=== PATIENT | female | born 1955 | race Caucasian/White ===

== ENCOUNTER 2016-12-26 15:18 | Emergency (ER) | payer MEDICAID ==
[~2016-12-26] VITALS: Ht 152.4 cm; Wt 109.7 kg
[2016-12-26] MEDS ORDERED: SODIUM CHLORIDE 0.9% 1,000ML IVBOLUS ONE (16:00)
[2016-12-26] MEDS ORDERED: SODIUM CHLORIDE FLUSH 10ML SYR IVF ONE (16:00)
[2016-12-26] MEDS ORDERED: ONDANSETRON 2MG/ML, 2ML IVPush ONE (16:00)
[2016-12-26] MEDS ORDERED: ONDANSETRON 2MG/ML, 2ML ONE (16:35)
[2016-12-26 16:41] LABS: BLOOD UREA NITROGEN 25 mg/dL (7-18)
[2016-12-26 16:46] LABS: ASPARTATE AMINO TRANSFERASE 16 U/L (15-37)
[2016-12-26 16:52] LABS: IS PT STATUS REG ER OR PRE ER? YES
[2016-12-26 16:55] VITALS: BP 170/93
[2016-12-26] MEDS ORDERED: HYDROmorphone 2 MG/ML, 1ML IVPush ONE (17:00)
[2016-12-26] MEDS ORDERED: HYDROmorphone 1 MG/ML, 1ML ONE (17:07)
== END 2016-12-26 18:06 | disposition home or self-care (01) ==
LOC: ED 18:00
DX: R51 Headache (principal); R42 Dizziness and giddiness; G89.29 Other chronic pain; I10 Essential (primary) hypertension; F43.10 Post-traumatic stress disorder, unspecified; M79.7 Fibromyalgia
CPT/HCPCS: 36415; 70450; 71010; 80053; 84484; 85025; 85610; 93005; 96361; 96374; 96375; 99285; J1170; J2405; J7030

== ENCOUNTER 2017-01-23 14:00 | Emergency (ER) | payer MEDICAID ==
[~2017-01-23] VITALS: Ht 152.4 cm; Wt 109.1 kg
[2017-01-23] MEDS ORDERED: KETOROLAC 30 MG/1 ML IVPush ONE (15:00)
[2017-01-23] MEDS ORDERED: SODIUM CHLORIDE 0.9% 1,000ML IVBOLUS ONE (15:00)
[2017-01-23] MEDS ORDERED: SODIUM CHLORIDE FLUSH 10ML SYR IVF ONE (15:00)
[2017-01-23] MEDS ORDERED: DIAZEPAM 5 MG TABLET PO ONE (15:00)
[2017-01-23] MEDS ORDERED: DIAZEPAM 5 MG TABLET ONE (15:06)
[2017-01-23] MEDS ORDERED: KETOROLAC 30 MG/1 ML ONE (15:06)
[2017-01-23 15:16] LABS: HEMATOCRIT 42.7 % (34.6-47.8); HEMOGLOBIN 13.8 g/dL (11.7-16.4); WHITE BLOOD COUNT 5.9 x10^3/uL (3.4-10)
[2017-01-23 15:30] LABS: BLOOD UREA NITROGEN 15 mg/dL (7-18)
[2017-01-23 15:38] LABS: IS PT STATUS REG ER OR PRE ER? YES
[2017-01-23 16:43] VITALS: BP 154/106
== END 2017-01-23 16:45 | disposition home or self-care (01) ==
LOC: ED 15:29
DX: M62.830 Muscle spasm of back (principal); E11.9 Type 2 diabetes mellitus without complications; F31.9 Bipolar disorder, unspecified; F43.10 Post-traumatic stress disorder, unspecified; I10 Essential (primary) hypertension; M79.7 Fibromyalgia; Z79.899 Other long term (current) drug therapy; Z88.6 Allergy status to analgesic agent; Z88.5 Allergy status to narcotic agent; Z88.8 Allergy status to other drugs, medicaments and biological substances
CPT/HCPCS: 36415; 71010; 80048; 82040; 83880; 84484; 85025; 85379; 93005; 96360; 99285; J7030

== ENCOUNTER 2017-03-08 11:21 | Emergency (ER) | payer MEDICAID ==
[~2017-03-08] VITALS: Ht 152.4 cm; Wt 107.6 kg
[2017-03-08 12:14] LABS: HEMATOCRIT 42.9 % (34.6-47.8); HEMOGLOBIN 14.5 g/dL (11.7-16.4); WHITE BLOOD COUNT 7.8 x10^3/uL (3.4-10)
[2017-03-08 12:30] LABS: ASPARTATE AMINO TRANSFERASE 17 U/L (15-37); BLOOD UREA NITROGEN 18 mg/dL (7-18); IS PT STATUS REG ER OR PRE ER? YES
[2017-03-08 12:32] LABS: ACETAMINOPHEN 3 mcg/mL (10-30)
[2017-03-08 12:54] LABS: DAU SCREEN DISCLAIMER
[2017-03-08 13:16] VITALS: BP 147/98
[2017-03-08] MEDS ORDERED: ACETAMINOPHEN 500 MG TABLET PO ONE (13:30)
[2017-03-08] MEDS ORDERED: DIAZEPAM 5 MG TABLET PO ONE (13:30)
[2017-03-08] MEDS ORDERED: DIAZEPAM 5 MG TABLET ONE (13:38)
[2017-03-08] MEDS ORDERED: ACETAMINOPHEN 500 MG TABLET ONE (13:38)
== END 2017-03-08 16:17 | disposition home or self-care (01) ==
LOC: ED 11:54
DX: F31.9 Bipolar disorder, unspecified (principal); F51.02 Adjustment insomnia; E11.9 Type 2 diabetes mellitus without complications; I10 Essential (primary) hypertension; Z88.6 Allergy status to analgesic agent; Z88.8 Allergy status to other drugs, medicaments and biological substances
CPT/HCPCS: 36415; 80053; 80307; 80329; 82140; 84484; 85025; 93005; 99285; G0479; G0480